=== PATIENT | female | born 1955 | race African-American/Black ===

== ENCOUNTER 2017-03-17 12:44 | Emergency (ER) | payer MEDICARE, OTHER ==
[2017-03-17 14:12] LABS: #Basophils 0.1 thou/uL (0.0-0.2); #Eosinphils 0.1 thou/uL (0.0-0.7); #Lymphocytes 3.2 thou/uL (1.20-3.40); #Monocytes 0.5 thou/uL (0.11-0.59); #Neutrophils 4.5 thou/uL (1.40-6.50); %Basophils 1.4 % (0.0-1.0); %Monocytes 5.7 % (0.0-10.0); %Neutrophils 53.8 % (42.0-75.0); Hemoglobin 11.6 g/dL (12.0-16.0); Mean Corpuscular HGB CONC 32.7 g/dL (32.0-36.0); Platelet Count 267 thou/uL (130-400); RBC Distribution Width 12.6 % (11.5-14.5); Red Blood Cell (RBC) Count 3.85 mill/uL (4.20-5.40); White Blood Cell (WBC) Count 8.4 thou/uL (4.8-10.8)
[2017-03-17 14:15] LABS: Anion Gap 16 mmol/L (10-20); BUN (Urea Nitrogen) 18 mg/dL (9.8-20.1); Calc. Creatinine Clearance 0 mL/min (70-130); Calcium 8.5 mg/dL (7.8-10.44); Carbon Dioxide 24 mmol/L (23-31); Chloride 101 mmol/L (98-107); Estimated GFR-MDRD Greater than 90; Glucose 154 mg/dL (80-115); Potassium 3.8 mmol/L (3.5-5.1); Sodium 137 mmol/L (136-145)
[2017-03-17 14:23] LABS: CKMB 6.3 ng/mL (0-6.6); Troponin I Less than 0.010 ng/mL (< 0.028)
[2017-03-17] MEDS ORDERED: methylPREDNISolone Sod Succ/PF 125 MG/2 ML VIAL ONE (14:24)
[2017-03-17] MEDS ORDERED: Ketorolac Tromethamine 30 MG/ML VIAL ONE (14:24)
--- NOTE | 2017-03-17 15:55 | CT ---
CT HEAD NONCONTRAST: HISTORY: Altered mental status. FINDINGS: No comparison. There is no evidence of acute intracranial hemorrhage or infarct. Mild diffuse winifred ical atrophy and chronic ischemic small-vessel disease are apparent. There is no mass effect or jaspal ft of midline structures. IMPRESSION: No acute intracranial abnormalities are demonstrated on noncontrast CT head. POS: [facility]
== END 2017-03-17 16:40 | disposition short-term general hospital (02) ==
LOC: MADERS 12:44
DX: I63.9 Cerebral infarction, unspecified (principal); M54.10 Radiculopathy, site unspecified; F17.210 Nicotine dependence, cigarettes, uncomplicated; E11.9 Type 2 diabetes mellitus without complications; I10 Essential (primary) hypertension; Z98.890 Other specified postprocedural states
CPT/HCPCS: 36415; 70450; 80048; 82553; 84484; 85025; 93005; 96374; 96375; J1885; J2930